=== PATIENT | male | born 1960 | race Caucasian/White ===

== ENCOUNTER 2018-08-26 11:13 | Emergency (ER) | payer MEDICARE ==
[~2018-08-26] VITALS: Ht 198.1 cm; Wt 137.9 kg
[~2018-08-26 11:13] MED LIST: BACITO TOP; BP MED; CARV25 PO; CARV6.25 PO; CEPH500 PO; CYCL10 PO; DIGO.125 PO; DIGO.25 PO; HYDACE10B PO; HYDACE5; HYDACE5 PO; IBUP800; LISI20 PO; LOPE2C PO; ONDA8 PO; OXYACE5T PO; OXYACE7.5T PO; OXYC10TA19 PO; PRAV20 PO; PROM25 PO; RXCLIN PO; RXOXYACE PO; TORSE20 PO; WARF1 PO; WARF3 PO; [UNRECOGNIZED DRUG - REMARK]
== END 2018-08-26 14:11 | disposition home or self-care (01) ==
LOC: ER 11:13
DX: S52.021A Displaced fracture of olecranon process without intraarticular extension of right ulna, initial encounter for closed fracture (principal); W01.0XXA Fall on same level from slipping, tripping and stumbling without subsequent striking against object, initial encounter; Z79.899 Other long term (current) drug therapy; Z79.01 Long term (current) use of anticoagulants; Z79.891 Long term (current) use of opiate analgesic; E78.00 Pure hypercholesterolemia, unspecified; I48.91 Unspecified atrial fibrillation; I10 Essential (primary) hypertension; Z87.891 Personal history of nicotine dependence
CPT/HCPCS: 29105; 73080; 96372; 96374; 99283-25; J1170; J2270

== ENCOUNTER 2024-02-21 11:41 | Emergency (ER) | payer OTHER, MEDICARE ==
[~2024-02-21] VITALS: Ht 198.1 cm; Wt 124.7 kg
[2024-02-21 11:43] VITALS: BP 160/113
== END 2024-02-21 13:52 | disposition home or self-care (01) ==
LOC: ER 11:41
DX: S13.9XXA Sprain of joints and ligaments of unspecified parts of neck, initial encounter (principal); V43.52XA Car driver injured in collision with other type car in traffic accident, initial encounter; E78.00 Pure hypercholesterolemia, unspecified; I10 Essential (primary) hypertension; Z87.891 Personal history of nicotine dependence; Z79.01 Long term (current) use of anticoagulants; Z79.899 Other long term (current) drug therapy
CPT/HCPCS: 72125; 99284-25

== ENCOUNTER 2025-06-30 06:51 | Day surgery (SDC) | payer MEDICARE ==
[~2025-06-30] VITALS: Ht 195.6 cm; Wt 116.3 kg
[~2025-06-30 06:51] MED LIST changes: +Balanced Salt Epinephrine Irrigation Solution 500 mL IR SCH; +Moxifloxacin HCL 0.5 MG/0.1 ML 0.4MLSYR LEFTEYE SCH; +Ondansetron 4 MG SoluTab MM PRN; +PHENYLEPHRINE\\TROPICAMIDE\\TETRACAINE OPHTHALMIC DILATING SOLN LEFTEYE PRN; +Povidone-Iodine 450 DROP/30 ML Solution LEFTEYE SCH; +Povidone-Iodine 450 DROP/30 ML Solution ONE; +Tetracaine HCl/Pf 0.5% Opth Soln 4 ml ONE; +Triamcinolone Inj Susp 40 MG / ML 1ML Vial INJ SCH; +Triamcinolone Inj Susp 40 MG / ML 1ML Vial ONE
[2025-06-30] MEDS ORDERED: AMLO5 PO (07:42)
--- NOTE | 2025-06-30 07:52 | NUR ---
06/30/25 0752 Monica Camp PT STATES THAT HIS ANXIETY IS AT A 01/28. VALIUM 10MG GIVEN AT 0740. PULSE OXIMETRY IN PLACE SHOWING SPO2 OF 98% ON RA. TETRACAINE IN AT 0742 PLEDGETT IN 0743 PT TOLERATED WELL. CALL LIGHT IN REACH.
--- NOTE | 2025-06-30 08:19 | NUR ---
06/30/25 0819 PADDY HEREDIA HR:75 BP:130/84 SPO2:99% ON 8L BLOW BY O2 RR:14
[2025-06-30 08:42] VITALS: BP 133/90
== END 2025-06-30 09:00 | disposition home or self-care (01) ==
LOC: ORSCSDS 06:51
PROVIDERS: Ophthalmology
PROC: 08RK3JZ Replacement of Left Lens with Synthetic Substitute, Percutaneous Approach (ICD-10-PCS; principal; 2025-06-30 08:30)
DX: H25.812 Combined forms of age-related cataract, left eye (principal); Z79.899 Other long term (current) drug therapy
CPT/HCPCS: A9270; J3301; V2632

== ENCOUNTER 2025-07-15 06:40 | Day surgery (SDC) | payer MEDICARE ==
[~2025-07-15] VITALS: Ht 198.1 cm; Wt 114.2 kg
[~2025-07-15 06:40] MED LIST changes: +AMLO5 PO; -Moxifloxacin HCL 0.5 MG/0.1 ML 0.4MLSYR LEFTEYE SCH; +Moxifloxacin HCL 0.5 MG/0.1 ML 0.4MLSYR RIGHTEYE SCH; -PHENYLEPHRINE\\TROPICAMIDE\\TETRACAINE OPHTHALMIC DILATING SOLN LEFTEYE PRN; +PHENYLEPHRINE\\TROPICAMIDE\\TETRACAINE OPHTHALMIC DILATING SOLN RIGHTEYE PRN; -Povidone-Iodine 450 DROP/30 ML Solution LEFTEYE SCH; +Povidone-Iodine 450 DROP/30 ML Solution RIGHTEYE SCH
--- NOTE | 2025-07-15 08:21 | NUR ---
07/15/25 0821 Ananya Bynum [facility].NURSE MARLINE REASSESSED PT. FOR ANXIETY PT. RATING ABOUT SAME. PT. SLEEPING THROUGH CONSTRUCTION NOISE. 0819 HERE TALKING WITH PT.
--- NOTE | 2025-07-15 08:30 | NUR ---
07/15/25 0830 Kimberly Wilder 0822 BP:128/94 HR:68 O2:100% RESP:16
[2025-07-15 08:41] VITALS: BP 121/83
--- NOTE | 2025-07-15 08:45 | NUR ---
07/15/[address] IN TALKING WITH PT
== END 2025-07-15 08:54 | disposition home or self-care (01) ==
LOC: ORSCSDS 06:40
PROVIDERS: Ophthalmology
PROC: 08RJ3JZ Replacement of Right Lens with Synthetic Substitute, Percutaneous Approach (ICD-10-PCS; principal; 2025-07-15 08:30)
DX: H25.811 Combined forms of age-related cataract, right eye (principal); Z96.1 Presence of intraocular lens; H40.053 Ocular hypertension, bilateral; I48.91 Unspecified atrial fibrillation; I77.810 Thoracic aortic ectasia; I27.20 Pulmonary hypertension, unspecified; Z79.01 Long term (current) use of anticoagulants; Z79.899 Other long term (current) drug therapy
CPT/HCPCS: A9270; J3301; V2632